=== PATIENT | male | born 1955 | race Asian ===

== ENCOUNTER 2019-02-05 13:47 | Outpatient (CLI) | payer MEDICAID ==
[~2019-02-05] VITALS: Ht 160 cm; Wt 53.1 kg
[2019-02-05] MEDS ORDERED: LORATADINE10 M2 PO (15:48)
[2019-02-05] MEDS ORDERED: MELOXICAM7.5 MG PO (15:48)
[2019-02-05] MEDS ORDERED: SYMBICORT 16010.2 G1 IH (15:48)
[2019-02-05 15:50] VITALS: BP 118/78
--- NOTE | 2019-02-07 19:00 | Consultation ---
DATE OF CONSULTATION: 02/05/2019 CONSULTING PHYSICIAN: Fam Fischer M.D. CHIEF COMPLAINT: Abdominal pain. HISTORY OF PRESENT ILLNESS: This is a 63-year-old male, referred to us for evaluation of abdominal pain. The pain is mostly in the lower quadrant where he has his abdominal hernia. No nausea. No vomiting. No dysphagia. No odynophagia. No prior history of endoscopy. No colonoscopy. PAST MEDICAL HISTORY: 1. Asthma. 2. Inguinal hernia. 3. History of pneumothorax. PAST SURGICAL HISTORY: None. MEDICATIONS: Please see medication reconciliation list. ALLERGIES: To ibuprofen, aspirin, questionable Tylenol. FAMILY HISTORY: No family history of GI malignancies. SOCIAL HISTORY: The patient denies any tobacco, alcohol, or drug abuse. PHYSICAL EXAMINATION: VITAL SIGNS: Temperature 98.5, pulse is 73, respirations 20, blood pressure is 118/78. HEENT: Normocephalic and atraumatic. Sclerae anicteric. NECK: Supple. No evidence of lymphadenopathy. CARDIOVASCULAR: Regular rate and rhythm. Plus S1 and S2. No obvious murmur. LUNGS: Clear to auscultation bilaterally. ABDOMEN: Positive bowel sounds. Soft. There is tenderness to palpation in the right lower quadrant that is where the hernia is. No rebound. No guarding. No peritoneal sign. EXTREMITIES: No cyanosis, no clubbing, no edema. ASSESSMENT AND PLAN: This is a 63-year-old male, referred to us for evaluation of abdominal pain. This is most probably secondary to abdominal hernia. I told that he needs to see a surgeon. I am not unfortunately a surgeon to procedure for him. Meanwhile, I offered him to have a colonoscopy of screening given the age of 63 and he never had one. He said he does not want that at this time. He wants to have his surgery done and then he will come back. The patient was advised to come back after evaluation for surgery to come back for screening colonoscopy. Fam Fischer M.D. DR: AI JOB#: [id number] CC:
== END 2019-02-05 16:00 | disposition home or self-care (01) ==
LOC: PAN 13:47
DX: R10.9 Unspecified abdominal pain (principal); Z88.6 Allergy status to analgesic agent
CPT/HCPCS: 99203